=== PATIENT | male | born 1965 | race Two or more races ===

== ENCOUNTER → 2017-11-23 | Outpatient (CLI) | payer OTHER ==
[2016-05-05 16:33] VITALS: BMI 38.4
[~2017-11-23] MED LIST: ALI300PT PO; ALIS150T3 PO; ASPI-1441 PO; ASPI81TA94 PO; BIPAP; CEPH500C24 PO; EZET1TAB53 PO; EZET1TAB86 PO; FELO5TAB34 PO; HUM100VI15 SQ; HYDR12.558 PO; INSU100V28; INSULIN; LANTUS SUBQ; LIPITOR; LISI5TAB25 PO; LISINOPRIL; METFORMIN PO; METO-222 PO; METO100T20 PO; METOPROLOL; MOM PO; NIT4 SL; OXYC5TAB38 PO; PAN40 PO; POLY17PO21 PO; RANI-324 PO; SUC1 PO; TEXTURNA PO; VALS40TA7 PO; VYTORIN; [UNRECOGNIZED DRUG - CODE] PO
--- NOTE | 2017-11-23 15:47 | EKG ---
FACILITY: [facility] - [place] PATIENT NAME: LARON BEARDEN : [id number] MR: [id number] V: [id number] EXAM DATE: ORDERING PHYSICIAN: BEST RICE TECHNOLOGIST: Rob Mcclure Reason : Blood Pressure : / mmHG Vent. Rate : 090 BPM Atrial Rate : 090 BPM P-R Int : 182 ms QRS Dur : 082 ms QT Int : 352 ms P-R-T Axes : 058 030 046 degrees QTc Int : 430 ms Sinus rhythm Possible biatrial enlargement Nonspecific ST findings inferior leads Borderline ECG Confirmed by MAMIE THAKKAR ([id number]) on 11/23/2017 3:51:39 PM Referred By: Confirmed By:MAMIE THAKKAR
[2017-11-23 15:52] LABS: PLATELET COUNT, AUTOMATED 312 K/uL (150-450)
--- NOTE | 2017-11-23 16:11 | RADIOLOGY IMAGING REPORT ---
FACILITY: [facility] PATIENT NAME: Bro Crocker : 1965 MR: [id number] V: [id number] EXAM DATE: ORDERING PHYSICIAN: BEST RICE TECHNOLOGIST: Location: [facility] [place] Patient: Bro Crocker : 1965 Visit/Account:[id number] Date of Sevice: 11/23/2017 EXAMINATION: Chest radiographs 2 views HISTORY: Chest pain, shortness of breath. COMPARISON: 05/06/2016. FINDINGS: PA and lateral views of the chest are submitted. Lines/tubes: None. Lungs/pleura: No focal consolidation or pleural effusion. Heart: Negative. Mediastinum: Negative. Bony structures/body wall: Negative. IMPRESSION: No radiographic evidence of acute cardiopulmonary disease. Report Dictated By: Una Ibarra MD at 11/23/2017 4:05 PM Report E-Signed By: Una Ibarra MD at 11/23/2017 4:07 PM WSN:[id number]
== END ==
LOC: RAD 15:18
PROVIDERS: ATTEND Nurse Practitioner Primary Care
DX: R06.02 Shortness of breath (principal); R07.9 Chest pain, unspecified; E11.40 Type 2 diabetes mellitus with diabetic neuropathy, unspecified
CPT/HCPCS: 36415; 71046; 82040; 82247; 82310; 82374; 82435; 82565; 82947; 83036; 83880; 84075; 84132; 84155; 84295; 84450; 84460; 84484; 84520; 85025; 93005